=== PATIENT | female | born 1955 | race Caucasian/White ===

== ENCOUNTER 2020-11-08 08:08 | Day surgery (SDC) | payer OTHER ==
[2020-11-05 16:20] VITALS: BMI 28.7
[2020-11-08] MEDS ORDERED: PROPOFOL 20 ML ONE ×3 (08:36)
[2020-11-08 10:07] VITALS: TEMP 98.1
[2020-11-08 11:44] VITALS: BP 122/74; PULSE 76
== END 2020-11-08 11:00 | disposition home or self-care (01) ==
LOC: FASU-ENDO 08:08
PROVIDERS: ATTEND Internal Medicine Gastroenterology
PROC: 0DBN8ZX Excision of Sigmoid Colon, Via Natural or Artificial Opening Endoscopic, Diagnostic (ICD-10-PCS; principal; 2020-11-08 09:37)
DX: Z12.11 Encounter for screening for malignant neoplasm of colon (principal); K63.5 Polyp of colon; Z86.010 Personal history of colon polyps
CPT/HCPCS: 88305-TC

== ENCOUNTER 2022-02-24 10:30 | Day surgery (SDC) | payer OTHER ==
[2022-02-19 15:53] VITALS: BMI 25.7
[2022-02-24 13:06] VITALS: TEMP 98
[2022-02-24 13:07] VITALS: BP 120/81; PULSE 80
== END 2022-02-24 14:05 | disposition home or self-care (01) ==
LOC: FASU-ENDO 10:30
PROVIDERS: ATTEND Internal Medicine Gastroenterology
PROC: 0DB68ZX Excision of Stomach, Via Natural or Artificial Opening Endoscopic, Diagnostic (ICD-10-PCS; 2022-02-24)
PROC: 0DB98ZX Excision of Duodenum, Via Natural or Artificial Opening Endoscopic, Diagnostic (ICD-10-PCS; principal; 2022-02-24 12:14)
DX: K29.50 Unspecified chronic gastritis without bleeding (principal); R10.13 Epigastric pain
CPT/HCPCS: 88305-TC; 88342-TC

== ENCOUNTER → 2022-09-11 | Day surgery (SDC) | payer OTHER | END | disposition home or self-care (01) | LOC: FMAMMOTONE 10:07 | PROVIDERS: ATTEND Obstetrics & Gynecology | PROC: 0HBT3ZX Excision of Right Breast, Percutaneous Approach, Diagnostic (ICD-10-PCS; principal; 2022-09-11) | DX: Z53.29 Procedure and treatment not carried out because of patient's decision for other reasons (principal); R92.0 Mammographic microcalcification found on diagnostic imaging of breast | CPT/HCPCS: 19081 ==